=== PATIENT | female | born 1985 | race Caucasian/White ===

== ENCOUNTER 2023-04-26 12:31 | Emergency (ER) | payer OTHER, MEDICAID ==
[~2023-04-26] VITALS: Ht 172.7 cm; Wt 72.6 kg
[2023-04-26 13:01] VITALS: BP 153/111; PULSE 78; RESP 18; TEMP 98; O2SAT 98
[2023-04-26 13:21] VITALS: BP 153/111; PULSE 78; RESP 18; TEMP 98; O2SAT 98
== END 2023-04-26 13:21 | disposition home or self-care (01) ==
LOC: MED 12:31
DX: S13.4XXA Sprain of ligaments of cervical spine, initial encounter (principal); S23.3XXA Sprain of ligaments of thoracic spine, initial encounter; Z98.890 Other specified postprocedural states; V43.52XA Car driver injured in collision with other type car in traffic accident, initial encounter; Y93.89 Activity, other specified; Y92.410 Unspecified street and highway as the place of occurrence of the external cause; Y99.8 Other external cause status
CPT/HCPCS: 99282